=== PATIENT | female | born 1960 | race Caucasian/White ===

== ENCOUNTER 2018-03-24 07:49 | Inpatient (IN) | payer MEDICARE, SELFPAY ==
[2018-03-24 07:50] VITALS: BP 129/86; PULSE 93; RESP 18; TEMP 37.1; O2SAT 96; BMI 31.1
--- NOTE | 2018-03-24 08:01 | ED.DCSUM_ITS ---
- ER Visit Summary Date of Service: 03/24/18 Chief Complaint: Abdominal pain, bowel obstruction History of Present Illness: The patient is a 57 F with history of coronary vascular disease, depression, and bipolar disorder who presents to the emergency department with abdominal pain. The patient was actually seen at [place] emergency department. She states that over the past few days, she had some loose watery diarrhea. She states that she began to have some worsening abdominal cramping and multiple episodes of vomiting. She states the diarrhea seemed to have resolved and she did have one regular bowel movement today. She presented to the emergency department because of her pain. The patient has had prior history of cholecystectomy and hysterectomy. She denies any prior history of bowel obstruction. Patient had an IV placed, labs were obtained, and she underwent CT imaging. CT did demonstrate evidence of a small bowel obstruction likely secondary to adhesions. The patient was discussed with Dr. Grove from this facility and sent here for further surgical evaluation. Physical Examination: Vital signs reviewed General: Well-nourished, well-developed Head: Normocephalic, atraumatic Eyes: Pupils equal and reactive, extraocular muscles intact Neck, supple, no lymphadenopathy Heart: Regular rate and rhythm Respiratory: No distress, clear bilaterally Abdomen: Soft, distended and mildly tender without rebound or guarding, no peritoneal signs Back: Nontender Extremities: Nontender, no edema, no cords Skin: Normal color no rash Neuro: Alert and oriented, no focal or lateralizing deficits Test Results: [] Emergency Department Course and Treatment: The patient was discussed with Dr. Grove. He was able to review the patient's CAT scan. He did request a medicine consultation given the patient's multiple comorbidities. An EKG was obtained which was unremarkable. The patient's pain was controlled. She was started on IV fluids and kept n.p.o. She will be admitted to surgical service with medicine consult. Treatment Plan: [] Disposition: Admission Impression: 1. Small bowel obstruction This note was generated with [employer] [facility] dictation software. It may contain incorrect words, spelling, and punctuation that were not noted in review of the chart prior to signing ED Disposition - Plan for ED Patient: Chief Complaint: Abd Pain Referrals: Shauna Cervantes DO [Primary Care Provider] -
[2018-03-24] MEDS: 0.9% Normal Saline 1,000 ML 1000 ML IV (08:08)
[2018-03-24] MEDS: Ondansetron 4 MG/2 ML Vial IV ×2 (08:09→15:15)
[2018-03-24] MEDS: Morphine 4 MG/ML Syringe IV (08:09)
--- NOTE | 2018-03-24 08:31 | EKG12_ITS ---
Test Reason : ABDOMINAL PAIN Blood Pressure : / mmHG Vent. Rate : 077 BPM Atrial Rate : 077 BPM P-R Int : 138 ms QRS Dur : 086 ms QT Int : 398 ms P-R-T Axes : 055 045 055 degrees QTc Int : 450 ms Normal sinus rhythm Normal ECG Confirmed by BOB ASHER, GABRIELLE ([id number]), legal editor SHANNON TRAN ([id number]) on 03/27/2018 2:58:10 PM Referred By: NATALI Confirmed By:GABRIELLE ROJAS MD
[2018-03-24 08:48] VITALS: BP 97/84; PULSE 85; RESP 18; O2SAT 94
[2018-03-24 09:27] VITALS: BP 123/69; PULSE 81; RESP 14; TEMP 36.9; O2SAT 93; BMI 31.1; BMI 31.2
--- NOTE | 2018-03-24 14:10 | CT_ITS ---
STUDY: CT ABDOMEN AND PELVIS WITH CONTRAST REASON FOR EXAM: Female, 57 years old. Abdominal pain, bowel obstruction. RADIATION DOSAGE (If Supplied By Facility): CTDIvol = ( 16.52 ) mGy, DLP = ( 765.61 ) mGycm TECHNIQUE: Transaxial images were obtained from the dome of the diaphragm to the symphysis pubis with oral contrast. 15 ml of Gastrografin contrast was administered. Sagittal and coronal images were reconstructed. Individualized dose optimization techniques were used for this CT. COMPARISON: None. FINDINGS: The visualized lung bases are unremarkable. The heart size is within normal limits. There is atherosclerotic calcification of the right coronary artery and visualized distal descending thoracic aorta. There is decreased attenuation of the liver consistent with steatosis. There is hepatomegaly, the right lobe measuring 20 cm in height the portal vein diameter is 12.5 mm. There are surgical clips in the gallbladder fossa consistent with a prior cholecystectomy. The diameter of the common bile duct near the jose hepatis is 8 mm, and 7 mm as it passes to the head of the pancreas. Normal spleen. Normal pancreas. Normal bilateral adrenal glands. Normal right kidney. Normal left kidney. No hydronephrosis. Normal visualized stomach. Normal small intestine. There is a small diverticulum along the left side of the rectum, otherwise normal colon. There is non-visualization of the appendix. There is moderately diffuse atherosclerotic calcification of the abdominal aorta and proximal iliac arteries, without a demonstrated aneurysm. Normal inferior vena cava. Normal retroperitoneum. Normal urinary bladder. There is absence of the uterus consistent with a prior hysterectomy. There is a small umbilical hernia containing fat. There is demineralization of the osseous structures. Patient has undergone prior L4-5 laminectomies and bilateral posterior lumbosacral fusion with metal hardware. Bilateral transpedicular screws L3-S1 interconnected on either side the longitudinal metal rods. CT/Abdomen/Pelvis without Cont IMPRESSION: 1. Small diverticulum suggested at the left wall of the rectum, otherwise unremarkable bowel without sign of obstruction. The appendix is not visualized. 2. Hepatomegaly with steatosis. 3. Prior cholecystectomy and hysterectomy. 4. Atherosclerotic vascular calcifications. There is no demonstrated aortic aneurysm, but the findings portend at least moderate risk for future cardiovascular event, Abdominal Aortic Calcific Deposits Are an Important Predictor of Vascular Morbidity and Mortality; Christopher Hickman, et al. Circulation, Aug 2000;[id number]. 5. Demineralization of the osseous structures. Prior L4-5 laminectomies and bilateral posterior lumbosacral fusion with metal hardware. Electronically Signed: Dutch Billings MD at 17:02 EDT , Service support ,
--- NOTE | 2018-03-24 14:19 | PCM.PROGNOTE ---
Subjective: Patient seen exam. Complains of generalized abdominal pain, bloating. Denies significant nausea. Denies emesis. Reports she has had a small bowel obstruction in the past. No other current complaints. - Physical Exam General: Alert, Oriented x3, Cooperative, No apparent distress HEENT: Atraumatic, PERRLA, EOMI, Normocephalic Neck: Supple, No JVD, Negative Carotid Bruits Lungs: Clear to auscultation, Normal air movement Cardiovascular: Regular rate, Regular Rhythm, Normal S1, Normal S2, No murmurs Abdomen: Hypoactive Bowel Sounds, Obese, Tender - Generalized tenderness to palpation Extremities: No clubbing, No cyanosis, No edema, Capillary Refill Less than 3 Seconds Skin: No rashes, No breakdown Musculoskeletal: No Tenderness to Palpation of Joints or Extremities Neurological: Cranial nerves II-XII grossly intact, Neuro grossly intact Psych/Mental Status: Normal Affect, Appropriate Vital Signs Temp Pulse Resp BP Pulse Ox 98.5 F 81 14 123/69 H 93 03/24/18 09:27 03/24/18 09:27 03/24/18 09:27 03/24/18 09:27 03/24/18 09:27 Oxygen Delivery Method Room Air Weight: 187 lb 8 oz Body Mass Index (BMI) 31.1 Medical Necessity - Tobacco Use Smoking Status: Current every day smoker Tobacco Use: Cigarettes Assessment/Plan 1. Acute small bowel obstruction-Reported on CT at [facility]. Surgery on consult, Dr. Alicia. Refused NG on admission. Denies nausea. Zofran as needed for nausea. PRN pain regimen. CT abdomen with oral contrast. 2. 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 3. Type 2 diabetes mellitus-not on regimen. Accu-Cheks before meals at bedtime with sliding scale insulin. 4. Hyperlipidemia-continue statin. 5. Restless leg syndrome-continue Requip regimen. 6. Bipolar disorder/anxiety-continue Risperdal and Effexor regimen. 7. History of seizures? Not on regimen. 8. History of migraines-continue Topamax regimen. 9. GERD-not on PPI. DVT prophylaxis-SCDs. Encourage ambulation. This patient was seen by SMITH Santizo under the supervision of Dr. Horton.
--- NOTE | 2018-03-24 14:33 | PN_ITS ---
Subjective: Patient seen exam. Complains of generalized abdominal pain, bloating. Denies significant nausea. Denies emesis. Reports she has had a small bowel obstruction in the past. No other current complaints. - Physical Exam General: Alert, Oriented x3, Cooperative, No apparent distress HEENT: Atraumatic, PERRLA, EOMI, Normocephalic Neck: Supple, No JVD, Negative Carotid Bruits Lungs: Clear to auscultation, Normal air movement Cardiovascular: Regular rate, Regular Rhythm, Normal S1, Normal S2, No murmurs Abdomen: Hypoactive Bowel Sounds, Obese, Tender - Generalized tenderness to pa lpation Extremities: No clubbing, No cyanosis, No edema, Capillary Refill Less than 3 Seconds Skin: No rashes, No breakdown Musculoskeletal: No Tenderness to Palpation of Joints or Extremities Neurological: Cranial nerves II-XII grossly intact, Neuro grossly intact Psych/Mental Status: Normal Affect, Appropriate Vital Signs Temp Pulse Resp BP Pulse Ox 98.5 F 81 14 123/69 H 93 03/24/18 09:27 03/24/18 09:27 03/24/18 09:27 03/24/18 09:27 03/24/18 09:27 Oxygen Delivery Method Room Air Weight: 187 lb 8 oz Body Mass Index (BMI) 31.1 Medical Necessity - Tobacco Use Smoking Status: Current every day smoker Tobacco Use: Cigarettes Assessment/Plan 1. Acute small bowel obstruction-Reported on CT at [facility]. Surgery on consult, Dr. Alicia. Refused NG on admission. Denies nausea. Zofran as needed for nausea. PRN pain regimen. CT abdomen with oral contrast. 2. 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 3. Type 2 diabetes mellitus-not on regimen. Accu-Cheks before meals at bedtime with sliding scale insulin. 4. Hyperlipidemia-continue statin. 5. Restless leg syndrome-continue Requip regimen. 6. Bipolar disorder/anxiety-continue Risperdal and Effexor regimen. 7. History of seizures? Not on regimen. 8. History of migraines-continue Topamax regimen. 9. GERD-not on PPI. DVT prophylaxis-SCDs. Encourage ambulation. This patient was seen by SMITH Santizo under the supervision of Dr. Horton.
--- NOTE | 2018-03-24 14:56 | CASEMGMT ---
RN CM Assessment completed. See Link -Intro role of CM to patient in room. She denies dc needs, states she is independent and friends/family provide transportation. -Discussed if dc needs change, CM will assist with further planning. Travis LEEN RN ACM
[2018-03-24] MEDS: 0.9% Normal Saline 1,000 ML 100 ML IV (15:13)
[2018-03-24 15:30] VITALS: BP 120/68; PULSE 80; RESP 16; TEMP 36.7; O2SAT 94
[2018-03-24 15:56] LABS: Bedside Glucose 98 mg/dL (70-110)
[2018-03-24] MEDS: Morphine 2 MG/ML Syringe 1 MG IV (16:29)
--- NOTE | 2018-03-24 18:36 | PCM.HP.STD ---
History of Present Illness Date of Admission: 03/24/18 The patient is a 57 year old F complaint of severe abdominal pain, nausea and vomiting with a CT scan from an outside institution, which was listed as consistent with a small bowel obstruction. The patient has a previous history of a hysterectomy and a laparoscopic cholecystectomy. She understands she underwent appendectomy at the time of her hysterectomy. She has a distant history of a small bowel obstruction which was treated conservatively. She recalls that she was admitted and treated with conservative management for her previous small bowel obstruction by Dr. Deysi Messer and her laparoscopic cholecystectomy by Dr. Deysi Messer. She believes this was sometime ago in [place]. patient presented to [facility] emergency department. She had laboratory studies which demonstrated White blood cell count of 15,000 with a left shift, otherwise normal. Hemoglobin, hematocrit and platelet count. noncontrast CT scan of the abdomen pelvis was obtained which demonstrated: EXAMINATION: CT ABDOMEN AND PELVIS W/O CONTRAST ? REASON FOR EXAM: Nausea, vomiting ? TECHNIQUE: CT ABDOMEN AND PELVIS W/O CONTRAST; CT of the abdomen and pelvis was performed without intravenous contrast using standard technique. ? ? CT Dose Reduction Employed: Automated exposure control (AEC) ? COMPARISON: CT abdomen/pelvis, 01/28/2017 ? ? FINDINGS: ? Glue Spreader: No additional finding. ? Lower Thorax: Bibasilar atelectasis noted. ?Coronary artery calcifications noted, not quantified. ?Questionable lipomatous hypertrophy of the interatrial septum. ? Mild bronchial wall thickening. ? Liver: A low-attenuation focus along the margin of the LEFT hepatic lobe in the region of the fissure ligamentum teres on image 65 of the axial series at first glance resembles air density; however this corresponds to a fat attenuation area on the comparison study. ?There is no convincing evidence of any free air. ?Vague low-attenuation along the anterior margin of the liver on image 85 of axial series ?appears similar to comparison. ? ? ? Biliary: Dilation of the extrahepatic bile duct is nonspecific but may be related to prior cholecystectomy. ?Gallbladder is absent ? Pancreas: Unremarkable. ? Spleen: Unremarkable. ? Adrenals: Soft tissue attenuation foci adjacent to LEFT adrenal gland are felt to be incidental. ?No definite adrenal nodule. ? Kidneys/Ureters: ? ? Kidneys are unremarkable. No definite hydronephrosis. No suspicious ureteral dilation. ? Pelvis: Bladder is collapsed. ?Uterus is not visualized. ? Gastrointestinal tract: Submucosal fat attenuation is noted involving the rectum, descending colon, portions of the transverse colon, ascending colon and stomach. ? This can be associated with chronic inflammatory bowel disease such as ulcerative colitis and Crohn's, but has also been noted in patients without any history of prior gastrointestinal disease, and in patients who are obese. ?This pattern can also be seen more frequently with underdistention. ?There is colonic diverticulosis with no convincing CT evidence of acute diverticulitis. ?The appendix is not definitively visualized. ?No dilated inflamed appendix shown. ? Incomplete gastric distention limits evaluation for wall thickening. ?There are dilated loops of small bowel with multiple air-fluid levels. ?Peripheral air densities in small bowel are likely intraluminal. ?There is no convincing evidence ?of any pneumatosis. ?No overt small bowel wall thickening is demonstrated. ?There ?is small bowel feces in areas. ?There is one relative decrease in caliber in the central anterior pelvis on image 147 of axial series; bowel distal to this area though is also mildly dilated. ?Additional relative areas of decreased bowel caliber are noted more distally. ? ?There is tortuosity of bowel loops and mesentery but no convincing evidence of any acute volvulus. ?Small bowel loops measure up to 2.9 cm in caliber. ? Vasculature: ?Vascular calcifications. ?Aorta appears of normal caliber. ?No portal venous gas demonstrated. ?IVC is grossly unremarkable. ? Lymph nodes: No suspicious lymph node enlargement. ? Mesentery/Peritoneum: There is trace interloop ascites. ?No free air. ?There is haziness in the mesenteric fat and likely underlying mesenteric vascular congestion. ? Bones/Soft tissues: Postsurgical changes involving the lumbar spine. ?No clear acute or suspicious osseous finding. ? ? IMPRESSION: ? 1. ?Findings are most consistent with a small bowel obstruction. ?There is no clear single transition point. ?Findings may be related to adhesive disease. ? There is a small amount of interloop ascites and mild mesenteric vascular congestion in areas. 2. ?Additional findings as detailed above. the patient requested transfer to [facility] preferentially to be seen by Dr. Messer if possible. I was contacted as I am on-call for Dr. Messer, agreed to accept the patient in transfer area. The patient noted continued flatus and had a bowel movement this morning. she declined NG tube at [place] and has not been nauseated since transfer to [place]. The patient has a past medical history significant for diabetes, tobacco use, hyperlipidemia, prior reflux, anxiety, bipolar disorder. She states she has some ventricular cardiac issues for which she sees a commercial producer. I see no record in the [facility] system of cardiac issues. She had a stress treadmill in 2014 for an indication of chest pain, which was negative for ischemia and demonstrated a 70% ejection fraction, without significant valvular abnormalities. 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 Otherwise, no other abnormalities noted. She apparently has less than 50% carotid artery stenosis bilaterally. EKG in the clinic system are also unremarkable. with the patient no longer nauseated and otherwise, doing well in [place] - A CT scan of the abdomen and pelvis with oral contrast was obtained. This demonstrated no signs of obstruction with contrast passing freely through the small bowel into the colon. No other specific abnormalities were seen Past Medical History Allergies doxycycline Allergy (Verified 03/24/18 07:58) Rash fluoxetine HCl [From Prozac] Adverse Reaction (Verified 03/24/18 09:43) Other had 1st seizure while on this med and refuses to take again paroxetine HCl [From Paxil] Adverse Reaction (Verified 03/24/18 09:43) Other had first seizure while taking this med and refuses to take again Home Medications: Ambulatory Orders Medication Instructions Recorded Atorvastatin Calcium [Lipitor] 20 mg PO QHS 06/13/15 Meloxicam [Mobic] 7.5 mg PO DAILY 06/13/15 Risperidone [Risperdal] 3 mg PO DAILY 06/13/15 Ropinirole HCl [Requip] 3 mg PO QHS 06/13/15 Topiramate [Topamax] 100 mg PO DAILY PRN 06/13/15 Venlafaxine XR [Effexor Xr] 150 mg PO DAILY 06/13/15 Surgical History: cholecystectomy, hysterectomy Smoking Status: Current every day smoker Tobacco Use: Cigarettes Review of Systems Constitutional: Denies: Chills, Fever, Weight Change HEENT: Denies: Head Aches, Sinus Congestion, Sinus Drainage Cardiovascular: Denies: Chest Pain, Palpitations Respiratory: Denies: Cough, Shortness of breath at rest, Sputum production Gastrointestinal: Denies: Abdominal Pain, Nausea, Vomiting Genitourinary: Denies: Dysuria Musculoskeletal: Denies: Joint Pain, Joint Tenderness Skin: Denies: Rash, Wounds Neurological: Denies: Numbness, Tingling, Focal weakness Psychiatric: Denies: Anxiety, Depression, Homicidal Ideations, Suicidal Ideations Hematologic/ Lymphatic: Denies: Easy Bruising, Easy Bleeding VTE Information - Inpt Only VTE Present on Admission: No VTE Mechan Device Prophylaxis: SCD's - Physical Exam General: Alert, Oriented x3, Cooperative Lungs: Clear to auscultation, Normal air movement Cardiovascular: Regular rate, No murmurs Abdomen: Soft, Hypoactive Bowel Sounds, Tender - mild diffusely tender without focal findings Vital Signs Temp Pulse Resp BP Pulse Ox 98.1 F 80 16 120/68 94 03/24/18 15:30 03/24/18 15:30 03/24/18 15:30 03/24/18 15:30 03/24/18 15:30 Oxygen Delivery Method Room Air Weight: 85.049 kg Body Mass Index (BMI) 31.1 Intake and Output for Last 24 Hours 03/22/18 03/23/18 03/24/18 23:59 23:59 23:59 Intake Total 258 / 258 Balance 258 / 258 POC Glucose 03/24/18 15:46 POC Glucose 98 Assessment/Plan questionable resolved small bowel obstruction versus gastroenteritis. Will restart liquids and see how the patient tolerates. We'll plan for abdominal multiview in morning. If patient tolerated well. We'll plan for discharge in the morning. We'll follow patient's Accu-Cheks.
[2018-03-24 21:33] VITALS: BP 127/63; PULSE 88; RESP 16; TEMP 37.2; O2SAT 92
[2018-03-24] MEDS: Ketorolac 15 MG/ML Vial IV (21:49)
[2018-03-24] MEDS: Pramipexole Di-HCl 0.5 MG Tablet 1.5 MG PO (21:50)
[2018-03-24] MEDS: Atorvastatin Calcium 20 MG Tablet PO (21:50)
[2018-03-24] MEDS: Topiramate 100 MG Tablet PO (21:51)
[2018-03-24] MEDS: Venlafaxine XR 150 MG Capsule PO (21:53)
[2018-03-24 23:11] LABS: Bedside Glucose 94 mg/dL (70-110)
[2018-03-25] MEDS: 0.9% Normal Saline 1,000 ML 100 ML IV (01:55)
[2018-03-25 03:37] VITALS: BP 151/82; PULSE 97; RESP 16; TEMP 36.9; O2SAT 92
--- NOTE | 2018-03-25 05:30 | RAD_ITS ---
STUDY: X-RAY - ABDOMEN/PELVIS REASON FOR EXAM: Female, 57 years old. TECHNIQUE: 3 views COMPARISON: June 02, 2015 FINDINGS: Contrast from prior examination is seen in nondistended large bowel. There is no small bowel distention and no free intraperitoneal air. There are no abnormal calcifications in the kidneys. Plates and transpedicular screws are in the lower half of the lumbosacral spine. Right upper quadrant clips indicating previous cholecystectomy. RAD/Abd Inc Decub and/or Erect IMPRESSION: No acute findings in the abdomen Electronically Signed: Kennedy Arreguin MD at 5:54 EDT Tel , Service support ,
[2018-03-25 06:51] LABS: Bedside Glucose 99 mg/dL (70-110)
[2018-03-25 07:19] LABS: Absolute Lymphocyte Count 3.32 X10^3/ul (0.83-4.51); Absolute Neutrophil Count 3.5 X10^3/uL (2.0-7.7); Basophil# 0.04 X10^3/uL; Basophil% 0.5 % (0-1); Eosinophil# 0.14 X10^3/uL; Eosinophils% 1.9 % (0-5); Lymphocyte # 3.32 X10^3/ul (4.0); Lymphocyte % 44.7 % (19-41); Mean Corp Hgb Conc 32.5 g/gl (32-36); Mean Corpuscular Hgb 32.5 pg (27.0-32.0); Mean Platelet Vol. 9.9 fl (6.2-12.0); Monocyte# 0.38 X10^3/uL; Monocyte% 5.1 % (0-10); Neutrophil # 3.53 X10^3/uL (2.7-7.7); Neutrophil % 47.7 % (47-70); Platelet Count 225 K/mm3 (150-450); RBC Distribution Width CV 12.4 % (11.6-14.6); RBC Distribution Width SD 45.7 fl (35.1-43.9); White Blood Count 7.4 K/mm3 (4.4-11.0)
[2018-03-25 07:24] LABS: POSITIVE COUNT NO; POSITIVE DIFFERENTIAL NO; POSITIVE MORPHOLOGY NO
[2018-03-25 07:46] LABS: ALB/GLOB Ratio 1.2 RATIO (0.9-2.4); AST(SGOT) 23 U/L (15-37); Alanine Aminotransfer ALT/SGPT 34 U/L (13-56); Albumin, Serum 3.4 g/dL (3.2-5.0); Alkaline Phosphatase 105 U/L (45-117); Anion Gap 7 (5-15); BUN 12 mg/dL (7-18); BUN/Creat Ratio 16.9 RATIO (10-20); Calcium,Total 8.3 mg/dL (8.5-10.1); Chloride 107 mmol/L (98-107); Creatinine, Serum 0.71 mg/dL (0.55-1.02); EST Glomerular Filtration Rate 90 mL/min (>60); Est Glom Filt Rate - Afr Amer 109 mL/min (>60); Estimated Creatinine Clearance 79.61 ml/min; Globulin 2.9 g/dL (2.2-4.2); Glucose 96 mg/dL (74-106); Potassium 3.9 mmol/L (3.5-5.1); Protein, Total 6.3 g/dL (6.4-8.2); Sodium Level 142 mmol/L (136-145)
--- NOTE | 2018-03-25 08:50 | DCINST_ITS ---
You will use the following diet at home:: Clear liquid - until pain improves, then advance as tolerated Discharge Activity: Return to Normal Activity, [address] Allergies/Adverse Reactions: Allergies doxycycline Allergy (Verified 03/24/18 07:58) Rash fluoxetine HCl [From Prozac] Adverse Reaction (Verified 03/24/18 09:43) Other had 1st seizure while on this med and refuses to take again paroxetine HCl [From Paxil] Adverse Reaction (Verified 03/24/18 09:43) Other had first seizure while taking this med and refuses to take again Medications to take at Discharge Atorvastatin Calcium [Lipitor] 20 mg PO QHS 06/13/15 Risperidone [Risperdal] 3 mg PO DAILY 06/13/15 Ropinirole HCl [Requip] 3 mg PO QHS 06/13/15 Topiramate [Topamax] 100 mg PO DAILY PRN 06/13/15 Venlafaxine XR [Effexor Xr] 150 mg PO DAILY 06/13/15 Insulin Lispro [Humalog KwikPen] See Protocol SC ACHS insuln.pen 03/25/18 Nicotine [Nicoderm] 14 mg TRANSDERM. DAILY #30 patch 03/25/18 Omeprazole [Prilosec] 40 mg PO DAILY #60 cap 03/25/18 Pramipexole Di-HCl [Mirapex] 1.5 mg PO HS tablet 03/25/18 The following prescriptions were given: Nicotine [Nicoderm] 14 mg TRANSDERM. DAILY #30 patch Omeprazole [Prilosec] 40 mg PO DAILY #60 cap Primary Care Physician: Shauna Cervantes DO [Primary Care Provider] - Test Results: Test results from this visit will be discussed in further detail at your follow- up appointment, if applicable. Please Follow Up With: Deysi Messer MD When: 1 week
[2018-03-25 08:57] VITALS: BP 162/86; PULSE 85; RESP 18; TEMP 37; O2SAT 92
--- NOTE | 2018-03-25 09:59 | PCM.PROGNOTE ---
Subjective: Patient seen and examined. Complains of abdominal tenderness. Denies nausea, vomiting. - Physical Exam General: Alert, Oriented x3, Cooperative, No apparent distress HEENT: Atraumatic, PERRLA, EOMI, Normocephalic Neck: Supple, No JVD, Negative Carotid Bruits Lungs: Clear to auscultation, Normal air movement Cardiovascular: Regular rate, Regular Rhythm, Normal S1, Normal S2, No murmurs Abdomen: Bowel Sounds Present, Soft, Non-Distended, Tender - Generalized Extremities: No clubbing, No cyanosis, No edema, Capillary Refill Less than 3 Seconds Skin: No rashes, No breakdown Musculoskeletal: No Tenderness to Palpation of Joints or Extremities Neurological: Cranial nerves II-XII grossly intact, Neuro grossly intact Psych/Mental Status: Normal Affect, Appropriate Vital Signs Temp Pulse Resp BP Pulse Ox 98.6 F 85 18 162/86 H 92 03/25/18 08:57 03/25/18 08:57 03/25/18 08:57 03/25/18 08:57 03/25/18 08:57 Oxygen Delivery Method Room Air Weight: 187 lb 8 oz Body Mass Index (BMI) 31.1 Intake and Output for Last 24 Hours 03/23/18 03/24/18 03/25/18 23:59 23:59 23:59 Intake Total 258 / 258 1565 / 1565 Balance 258 / 258 1565 / 1565 Laboratory Tests Past 24 Hrs 03/25/18 03/25/18 06:11 06:11 WBC 7.4 RBC 4.00 L Hgb 13.0 Hct 40.0 MCV 100.0 H MCH 32.5 H MCHC 32.5 RDW 12.4 RDW Differential 45.7 H Plt Count 225 MPV 9.9 Immature Gran % (Auto) 0.100 Neut % (Auto) 47.7 Lymph % (Auto) 44.7 H [place] % (Auto) 5.1 Eos % (Auto) 1.9 Baso % (Auto) 0.5 Absolute Neuts (auto) 3.5 Absolute Lymphs (auto) 3.32 Total Counted Not Reportable Sodium 142 Potassium 3.9 Chloride 107 Carbon Dioxide 28.0 Anion Gap 7 BUN 12 Creatinine 0.71 Estim Creat Clear Calc 79.61 Est GFR (MDRD) Af Amer 109 Est GFR (MDRD) Non-Af 90 BUN/Creatinine Ratio 16.9 Glucose 96 Calcium 8.3 L Total Bilirubin 0.40 AST 23 ALT 34 Alkaline Phosphatase 105 Total Protein 6.3 L Albumin 3.4 Globulin 2.9 Albumin/Globulin Ratio 1.2 POC Glucose 03/25/18 03/24/18 03/24/18 06:46 22:00 15:46 POC Glucose 99 94 98 Medical Necessity - Tobacco Use Smoking Status: Current every day smoker Tobacco Use: Cigarettes Assessment/Plan 1. Questionable resolved small bowel obstruction versus gastroenteritis-small bowel obstruction reported on [facility] at [facility]. Dr. Alicia following. CT of abdomen with oral contrast during admission showed no sign of obstruction. X-ray of abdomen and pelvis this morning again showed no acute findings. Patient to be discharged home today per surgery on PPI. To follow-up with Dr. Messer in 1 week. 2. 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 3. Type 2 diabetes mellitus-not on regimen. Accu-Cheks before meals at bedtime with sliding scale insulin. 4. Hyperlipidemia-continue statin. 5. Restless leg syndrome-continue Requip regimen. 6. Bipolar disorder/anxiety-continue Risperdal and Effexor regimen. 7. History of seizures? Not on regimen. 8. History of migraines-continue Topamax regimen. 9. GERD-started on PPI. DVT prophylaxis-SCDs. Encourage ambulation. This patient was seen by SMITH Santizo under the supervision of Dr. Horton.
--- NOTE | 2018-03-25 10:02 | PN_ITS ---
Subjective: Patient seen and examined. Complains of abdominal tenderness. Denies nausea, vomiting. - Physical Exam General: Alert, Oriented x3, Cooperative, No apparent distress HEENT: Atraumatic, PERRLA, EOMI, Normocephalic Neck: Supple, No JVD, Negative Carotid Bruits Lungs: Clear to auscultation, Normal air movement Cardiovascular: Regular rate, Regular Rhythm, Normal S1, Normal S2, No murmurs Abdomen: Bowel Sounds Present, Soft, Non-Distended, Tender - Generalized Extremities: No clubbing, No cyanosis, No edema, Capillary Refill Less than 3 Seconds Skin: No rashes, No breakdown Musculoskeletal: No Tenderness to Palpation of Joints or Extremities Neurological: Cranial nerves II-XII grossly intact, Neuro grossly intact Psych/Mental Status: Normal Affect, Appropriate Vital Signs Temp Pulse Resp BP Pulse Ox 98.6 F 85 18 162/86 H 92 03/25/18 08:57 03/25/18 08:57 03/25/18 08:57 03/25/18 08:57 03/25/18 08:57 Oxygen Delivery Method Room Air Weight: 187 lb 8 oz Body Mass Index (BMI) 31.1 Intake and Output for Last 24 Hours 03/23/18 03/24/18 03/25/18 23:59 23:59 23:59 Intake Total 258 / 258 1565 / 1565 Balance 258 / 258 1565 / 1565 Laboratory Tests Past 24 Hrs 03/25/18 03/25/18 06:11 06:11 WBC 7.4 RBC 4.00 L Hgb 13.0 Hct 40.0 MCV 100.0 H MCH 32.5 H MCHC 32.5 RDW 12.4 RDW Differential 45.7 H Plt Count 225 MPV 9.9 Immature Gran % (Auto) 0.100 Neut % (Auto) 47.7 Lymph % (Auto) 44.[address] [facility] % (Auto) 5.1 Eos % (Auto) 1.9 Baso % (Auto) 0.5 Absolute Neuts (auto) 3.5 Absolute Lymphs (auto) 3.32 Total Counted Not Reportable Sodium 142 Potassium 3.9 Chloride 107 Carbon Dioxide 28.0 Anion Gap 7 BUN 12 Creatinine 0.71 Estim Creat Clear Calc 79.61 Est GFR (MDRD) Af Amer 109 Est GFR (MDRD) Non-Af 90 BUN/Creatinine Ratio 16.9 Glucose 96 Calcium 8.3 L Total Bilirubin 0.40 AST 23 ALT 34 Alkaline Phosphatase 105 Total Protein 6.3 L Albumin 3.4 Globulin 2.9 Albumin/Globulin Ratio 1.2 POC Glucose 03/25/18 03/24/18 03/24/18 06:46 22:00 15:46 POC Glucose 99 94 98 Medical Necessity - Tobacco Use Smoking Status: Current every day smoker Tobacco Use: Cigarettes Assessment/Plan 1. Questionable resolved small bowel obstruction versus gastroenteritis-small bowel obstruction reported on CT at [facility]. Dr. Alicia following. CT of abdomen with oral contrast during admission showed no sign of obstruction. X- ray of abdomen and pelvis this morning again showed no acute findings. Patient to be discharged home today per surgery on PPI. To follow-up with Dr. Messer in 1 week. 2. 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 3. Type 2 diabetes mellitus-not on regimen. Accu-Cheks before meals at bedtime with sliding scale insulin. 4. Hyperlipidemia-continue statin. 5. Restless leg syndrome-continue Requip regimen. 6. Bipolar disorder/anxiety-continue Risperdal and Effexor regimen. 7. History of seizures? Not on regimen. 8. History of migraines-continue Topamax regimen. 9. GERD-started on PPI. DVT prophylaxis-SCDs. Encourage ambulation. This patient was seen by SMITH Santizo under the supervision of Dr. Horton.
--- NOTE | 2018-03-25 10:15 | PCM.DC.SUM ---
Discharge Date and Diagnosis Date of Admission: 03/24/18 Date of Discharge: 03/25/18 - Primary Discharge Diagnosis abdominal pain-questionable small bowel obstruction Hospital Course and Treatment Imaging Results: 03/25/18 05:30 Abd Inc Decub and/or Erect [RAD] Routine Summary of Care Provided: The patient is a 57 year old F complaint of severe abdominal pain, nausea and vomiting with a CT scan from an outside institution, which was listed as consistent with a small bowel obstruction. The patient has a previous history of a hysterectomy and a laparoscopic cholecystectomy. She understands she underwent appendectomy at the time of her hysterectomy. She has a distant history of a small bowel obstruction which was treated conservatively. She recalls that she was admitted and treated with conservative management for her previous small bowel obstruction by Dr. Deysi Messer and her laparoscopic cholecystectomy by Dr. Deysi Messer. She believes this was sometime ago in [place]. patient presented to [facility] emergency department. She had laboratory studies which demonstrated White blood cell count of 15,000 with a left shift, otherwise normal. Hemoglobin, hematocrit and platelet count. noncontrast CT scan of the abdomen pelvis was obtained which demonstrated when was question to be a small bowel obstruction with some small bowel distention. The patient had persistent pain when she was transferred to [facility] but no further nausea. A repeat CT scan with oral contrast demonstrated the contrast flowed easily to the colon with no signs of obstruction. Follow-up x-ray the following morning demonstrates normal bowel gas pattern with contrast in the left colon. The patient still notes abdominal pain. She smokes, she takes nonsteroidal medications. She will be discharged on a nicotine patch. Instructions to decrease nicotine use. She'll be empirically started on proton pump inhibitors. We may plan for follow-up small bowel follow-through as an outpatient given her expectation that she has adhesive small bowel disease and recurring small bowel obstructions. This may be just a case of gastroenteritis. Discharge Activity: Return to Normal Activity, [address] Home Medications: Medications to take at Discharge Atorvastatin Calcium [Lipitor] 20 mg PO QHS 06/13/15 Risperidone [Risperdal] 3 mg PO DAILY 06/13/15 Ropinirole HCl [Requip] 3 mg PO QHS 06/13/15 Topiramate [Topamax] 100 mg PO DAILY PRN 06/13/15 Venlafaxine XR [Effexor Xr] 150 mg PO DAILY 06/13/15 Insulin Lispro [Humalog KwikPen] See Protocol SC ACHS insuln.pen 03/25/18 Nicotine [Nicoderm] 14 mg TRANSDERM. DAILY #30 patch 03/25/18 Omeprazole [Prilosec] 40 mg PO DAILY #60 cap 03/25/18 Pramipexole Di-HCl [Mirapex] 1.5 mg PO HS tablet 03/25/18 Following Prescrptions Were Given to Patient: Nicotine [Nicoderm] 14 mg TRANSDERM. DAILY #30 patch Omeprazole [Prilosec] 40 mg PO DAILY #60 cap Primary Care Physician: Shauna Cervantes DO [Primary Care Provider] - Please Follow Up With: Deysi Messer MD When: 1 week Medical Necessity - Tobacco Use Smoking Status: Current every day smoker Tobacco Use: Cigarettes Meaningful Use Info Meaningful Use Diagnoses (Choose all that apply): None applicable
--- NOTE | 2018-03-25 10:18 | DS.PCM_ITS ---
Discharge Date and Diagnosis Date of Admission: 03/24/18 Date of Discharge: 03/25/18 - Primary Discharge Diagnosis abdominal pain-questionable small bowel obstruction Hospital Course and Treatment Imaging Results: 03/25/18 05:30 Abd Inc Decub and/or Erect [RAD] Routine Summary of Care Provided: The patient is a 57 year old F complaint of severe abdominal pain, nausea and vomiting with a CT scan from an outside institution, which was listed as consistent with a small bowel obstruction. The patient has a previous history of a hysterectomy and a laparoscopic cholecystectomy. She understands she underwent appendectomy at the time of her hysterectomy. She has a distant history of a small bowel obstruction which was treated conservatively. She recalls that she was admitted and treated with conservative management for her previous small bowel obstruction by Dr. Deysi Messer and her laparoscopic cholecystectomy by Dr. Deysi Messer. She believes this was sometime ago in [place]. patient presented to [facility] emergency department. She had laboratory studies which demonstrated White blood cell count of 15,000 with a left shift, otherwise normal. Hemoglobin, hematocrit and platelet count. noncontrast CT scan of the abdomen pelvis was obtained which demonstrated when was question to be a small bowel obstruction with some small bowel distention. The patient had persistent pain when she was transferred to [facility] but no further nausea. A repeat CT scan with oral contrast demonstrated the contrast flowed easily to the colon with no signs of obstruction. Follow-up x- ray the following morning demonstrates normal bowel gas pattern with contrast in the left colon. The patient still notes abdominal pain. She smokes, she takes nonsteroidal medications. She will be discharged on a nicotine patch. Instructions to decrease nicotine use. She'll be empirically started on proton pump inhibitors. We may plan for follow-up small bowel follow-through as an outpatient given her expectation that she has adhesive small bowel disease and recurring small bowel obstructions. This may be just a case of gastroenteritis. Discharge Activity: Return to Normal Activity, [address] Home Medications: Medications to take at Discharge Atorvastatin Calcium [Lipitor] 20 mg PO QHS 06/13/15 Risperidone [Risperdal] 3 mg PO DAILY 06/13/15 Ropinirole HCl [Requip] 3 mg PO QHS 06/13/15 Topiramate [Topamax] 100 mg PO DAILY PRN 06/13/15 Venlafaxine XR [Effexor Xr] 150 mg PO DAILY 06/13/15 Insulin Lispro [Humalog KwikPen] See Protocol SC ACHS insuln.pen 03/25/18 Nicotine [Nicoderm] 14 mg TRANSDERM. DAILY #30 patch 03/25/18 Omeprazole [Prilosec] 40 mg PO DAILY #60 cap 03/25/18 Pramipexole Di-HCl [Mirapex] 1.5 mg PO HS tablet 03/25/18 Following Prescrptions Were Given to Patient: Nicotine [Nicoderm] 14 mg TRANSDERM. DAILY #30 patch Omeprazole [Prilosec] 40 mg PO DAILY #60 cap Primary Care Physician: Shauna Cervantes DO [Primary Care Provider] - Please Follow Up With: Deysi Messer MD When: 1 week Medical Necessity - Tobacco Use Smoking Status: Current every day smoker Tobacco Use: Cigarettes Meaningful Use Info Meaningful Use Diagnoses (Choose all that apply): None applicable
[2018-03-25] MEDS: Insulin Lispro 100 UNIT/ML INSULN.PEN SC (12:12)
[2018-03-25 13:06] LABS: Bedside Glucose 150 mg/dL (70-110)
== END 2018-03-25 13:37 | disposition home or self-care (01) | DRG 390 ==
LOC: ED 08:33 → MS3 08:50
PROVIDERS: Admitting Provider Surgery; Emergency Provider Emergency Medicine; Family Provider Family Medicine; PCP Family Medicine; Visit Provider Surgery
DX: K56.609 Unspecified intestinal obstruction, unspecified as to partial versus complete obstruction (principal); R10.9 Unspecified abdominal pain; Z23 Encounter for immunization; E11.9 Type 2 diabetes mellitus without complications; E78.5 Hyperlipidemia, unspecified; F31.9 Bipolar disorder, unspecified; F41.9 Anxiety disorder, unspecified; G25.81 Restless legs syndrome; I25.10 Atherosclerotic heart disease of native coronary artery without angina pectoris; Z90.49 Acquired absence of other specified parts of digestive tract; Z90.710 Acquired absence of both cervix and uterus; F17.210 Nicotine dependence, cigarettes, uncomplicated
CPT/HCPCS: 36415; 74019; 74176; 80053; 82962; 85025; 93005; 99285; 99406; J7030; 90686; J2405

== ENCOUNTER 2018-04-10 11:34 | Day surgery (SDC) | payer MEDICARE, SELFPAY ==
[2018-04-10] VITALS (7 sets, daily range): BP systolic 115–173; BP diastolic 59–96; PULSE 78–90; RESP 16–18; TEMP 35.9–36.8; O2SAT 93–99; BMI 30.9
[2018-04-10 12:11] LABS: Bedside Glucose 109 mg/dL (70-110)
[2018-04-10 12:37] LABS: Hemoglobin A1c 5.8 % (4.2-6.3)
--- NOTE | 2018-04-10 13:15 | DCINST_ITS ---
Discharge Diet: - - liquid diet for two days no carbonated beverages for a few days - this will increase bloating and add to discomfort Discharge Activity: Return to Normal Activity, May not drive while taking narcotic pain medications. Lifting Restrictions: no lifting greater than 20 pounds for two weeks Call your doctor if your incision/area has: Continuous Slow Oozing, Foul Smelling Discharge Call your doctor if you observe: Fever of 101 or Higher Additional Dressing/Incision Instructions:: Leave dressings in place. May get wet in shower. Do not soak - no tub baths/swimming Additional Instructions: try to avoid narcotics use - try the following pain control regimen - for about two days -take alternating acetominophen and ibuprofen that is - take ibuprofen 600 mg then in 3 hours take 650 mg of acetominophen then in 3 hours take 600 mg of ibuprofen, etc. and continue this for the first two days after surgery. Take oxyir for breakthrough pain and/or at night to help you to sleep Allergies/Adverse Reactions: Allergies doxycycline Allergy (Verified 04/04/18 14:09) Rash fluoxetine HCl [From Prozac] Adverse Reaction (Verified 04/04/18 14:09) Other had 1st seizure while on this med and refuses to take again paroxetine HCl [From Paxil] Adverse Reaction (Verified 04/04/18 14:09) Other had first seizure while taking this med and refuses to take again risperidone [From Risperdal] Adverse Reaction (Verified 04/04/18 14:15) Other NIGHTMARES Medications to take at Discharge Atorvastatin Calcium [Lipitor] 20 mg PO QHS 06/13/15 Ropinirole HCl [Requip] 3 mg PO QHS 06/13/15 Topiramate [Topamax] 100 mg PO DAILY PRN 06/13/15 Venlafaxine XR [Effexor Xr] 225 mg PO QHS 06/13/15 Omeprazole [Prilosec] 40 mg PO QHS 04/04/18 Oxycodone [Oxyir] 5 mg PO Q6H PRN PRN 5 Days #15 tab 04/10/18 The following prescriptions were given: Oxycodone [Oxyir] 5 mg PO Q6H PRN PRN 5 Days #15 tab PRN Reason: Pain Primary Care Physician: Neena Mckeon NP-C [Primary Care Provider] - Test Results: Test results from this visit will be discussed in further detail at your follow- up appointment, if applicable. Please Follow Up With: Deysi Messer MD - call When: to be seen in 7-10 days, please call for date and time, thank you
--- NOTE | 2018-04-10 13:19 | OP.PN_ITS ---
Immediate Post-Op Note Date of Procedure: 04/10/18 Primary Surgeon/Physician: Deysi Messer outside salesperson: JEWEL,KOSTAS Holt, medical student Pre-Operative Diagnosis: chronic intermittent small bowel obstruction Post-Operative Diagnosis: dense adhesive disease of small intestine, dense omental adhesions to small intestine and anterior abdominal wall Surgery/Procedure Performed:: diagnostic laparoscopy, laparoscopic lysis of adhesions Description of Surgical Findings:: mid lower abdominal small intestinal dense adhesions with looping, omental adhesions to anterior abdominal wall and small bowel, possible multiple small abdominal ventral hernias Estimated Blood Loss: 30 ml Specimen's removed: none Type of Anesthesia:: General ASA Class: ASA2 Mod Systematic Disease - Admit VTE Documentation VTE Present on Admission: Yes VTE Mechan Device Prophylaxis: SCD's
[2018-04-10] MEDS: Bupiv/Epi 0.5% Mpf 30 ML Vial (15:07)
--- NOTE | 2018-04-10 15:24 | PCM.OPRPT ---
Report of Operation Date of Procedure: 04/10/18 Pre-Operative Diagnosis: chronic intermittent small bowel obstructions Post-Operative Diagnosis: dense adhesive disease of small intestine, dense omental adhesions to small intestine and anterior abdominal wall Surgery/Procedure Performed:: diagnostic laparoscopy, laparoscopic lysis of adhesions Description of Surgical Findings:: mid lower abdominal small intestinal dense adhesions with looping, omental adhesions to anterior abdominal wall and small bowel, possible multiple small abdominal ventral hernias merchandise for resale purchasing agent: JEWEL,KOSTAS - Branden Holt, medical student Type of Anesthesia:: General Anesthesiologist: Yohan Bautista Specimen's removed: none Drains: none Estimated Blood Loss (mL): 30 ml Fluids Replaced: 1400 ml RL Description of Procedure: After informed consent was given, the patient was brought to the Operating Room and placed in the supine position. Appropriate time out protocol was followed. The patient was then placed under general endotracheal anesthesia. The abdomen was then prepped with a sterile surgical skin preparation and sterile surgical drapes were placed. The infraumbilical skin fold was grasped with penetrating clamps and the skin and subcutaneous tissues were infiltrated with 0.5% marcaine with epinephrine. A skin incision was then made with a 15 blade scalpel. The anterior abdominal wall was elevated and the incision was carried down to the fascia. The fascia was opened under direct visualization and the intraabdominal cavity was entered. Blunt digital dissection was then done to clear the intraabdominal adhesions to the periumbilical fascial opening. Blunt dissection under direct visualization was done to make enough room for an 11 mm trocar. Once this was done, then a CO2 pneumoperitoneum was then created. A 10mm laparoscope was then inserted into the trocar and careful attention was directed to the intraabdominal contents. There were still a large amount of omental adhesions to the anterior abdominal wall. 5 mm trocars (x3) were then inserted under direct visualization after the skin and subcutaneous tissues were infiltrated with local anesthetic. The patient had a large amount of intraabdominal fatty tissues and a fatty omentum creating adhesions throughout the lower abdomen. Using the Harmonic scalpel, the omentum was from the anterior abdominal wall and small intestine. This took a large amount of time, due to the denseness of the adhesions. Careful attention was made to not injure the small bowel. There may have been small ventral hernias, however this was difficult to determine because of the amount of fatty tissues in the abdomen. In the lower abdomen, there were densely matted adhesed loops of small bowel, in a hairpin fashion. These were initially but not entirely, as the risks of injury to the small bowel were greater than the benefit of small bowel separation. This area was a localized segment of small intestine, in the lower mid abdomen. Hemostasis was carefully checked. No active bleeding or any bile leak was noted. The CO2 was released and all trocars removed intact. The fascia at the umbilical hernia site was then reapproximated transversely with [id number] 0 vicryl suture. All skin incisions were closed with 4-0 monocryl in a subdermal fashion. Cavilol and Steristrips were used to reinforce the skin closure. Sterile dressings were applied to all wounds. The patient was extubated and brought to the Recovery Room in stable condition. - Complications none noted - Admit VTE Documentation VTE Present on Admission: Yes VTE Mechan Device Prophylaxis: SCD's
[2018-04-10 16:16] LABS: Bedside Glucose 146 mg/dL (70-110)
[2018-04-10] MEDS: oxyCODONE 5 MG Tablet PO (17:04)
== END 2018-04-10 17:50 | disposition home or self-care (01) ==
LOC: SDC 11:34 → AC 11:35
PROVIDERS: Referring Provider Surgery; Visit Provider Surgery
PROC: (CPT 49320; principal; 2018-04-10 12:45)
DX: K42.0 Umbilical hernia with obstruction, without gangrene (principal); K66.0 Peritoneal adhesions (postprocedural) (postinfection); F31.9 Bipolar disorder, unspecified; F41.9 Anxiety disorder, unspecified; E11.9 Type 2 diabetes mellitus without complications; K21.9 Gastro-esophageal reflux disease without esophagitis; E78.00 Pure hypercholesterolemia, unspecified; Z79.899 Other long term (current) drug therapy; F17.200 Nicotine dependence, unspecified, uncomplicated; J44.9 Chronic obstructive pulmonary disease, unspecified; G43.909 Migraine, unspecified, not intractable, without status migrainosus; G25.81 Restless legs syndrome; I25.10 Atherosclerotic heart disease of native coronary artery without angina pectoris
CPT/HCPCS: 00752; 49653; 82962; 83036; J7050; J7120; J2405